=== PATIENT | female | born 1985 ===

== ENCOUNTER 2021-05-13 05:06 | Inpatient (IN) | payer MEDICAID ==
[2021-05-13] MEDS ORDERED: Sodium Chloride 0.9% 10 ML Syringe FLUSH PRN (05:15)
[2021-05-13] MEDS ORDERED: ceFAZolin 2 GM in Premix Bag 1 BAG IV ONE (05:15)
[2021-05-13] MEDS ORDERED: Oxytocin/0.9 % Sodium Chloride 30 UNIT/500 ML BAG IV SCH (05:15)
[2021-05-13] MEDS ORDERED: Sodium Chloride 0.9% 2.5 ML Syringe FLUSH PRN (05:15)
[2021-05-13] MEDS ORDERED: Sodium Chloride 0.9% 20 ML SDV IV PRN (05:15)
[2021-05-13] MEDS ORDERED: Citric Acid/Sodium Citrate Solution 30 ML Cup PO ONE ×2 (05:15→17:30)
[2021-05-13] MEDS: Lactated Ringers 1,000 ML IV SCH ×2 (05:30→06:17)
[2021-05-13] MEDS ORDERED: Oxytocin 10 Units/1 ML SDV ONE (07:42)
[2021-05-13] MEDS ORDERED: Ketorolac 30 MG/ML SDV ONE (07:43)
[2021-05-13] MEDS ORDERED: Phenylephrine 1% 10 MG/ML SDV ONE (07:43)
[2021-05-13] MEDS ORDERED: Ondansetron 4 MG/2 ML SDV ONE (07:43)
[2021-05-13] MEDS ORDERED: Morphine PF 10 MG/10 ML SDV ONE (07:44)
[2021-05-13] MEDS ORDERED: fentaNYL 100 MCG/2 ML SDV ONE (07:44)
[2021-05-13] MEDS ORDERED: Citric Acid/Sodium Citrate Solution 30 ML Cup ONE (07:55)
[2021-05-13] MEDS ORDERED: Famotidine 20 MG/2 ML SDV ONE (08:19)
[2021-05-13] MEDS ORDERED: Oxytocin 10 Units/1 ML SDV IM PRN (09:10)
[2021-05-13] MEDS ORDERED: Ondansetron 4 MG/2 ML SDV IVPUSH PRN ×2 (09:10→09:21)
[2021-05-13] MEDS ORDERED: diphenhydrAMINE 50 MG/ML SDV IVPUSH PRN ×2 (09:10→09:21)
[2021-05-13] MEDS ORDERED: Acetaminophen/HYDROcodone 325-5 MG Tab PO PRN ×3 (09:10→13:44)
[2021-05-13] MEDS ORDERED: Lanolin 100% Cream 7 GM Tube TOP PRN (09:10)
[2021-05-13] MEDS ORDERED: Aluminum Hydroxide/Magnesium Hydroxide/Simethicone XS Susp 30 ML Cup PO PRN (09:10)
[2021-05-13] MEDS ORDERED: Methylergonovine 0.2 MG/1 ML Amp IM PRN (09:10)
[2021-05-13] MEDS ORDERED: Tranexamic Acid 1,000 MG in Sodium Chloride 0.9% 100 ML IV PRN (09:10)
[2021-05-13] MEDS ORDERED: Ibuprofen 800 MG Tab PO PRN (09:10)
[2021-05-13] MEDS ORDERED: Bisacodyl 10 MG Supp RECTAL PRN (09:10)
[2021-05-13] MEDS ORDERED: Lactated Ringers 1,000 ML IV SCH (09:15)
[2021-05-13] MEDS ORDERED: fentaNYL 100 MCG/2 ML SDV IVPUSH PRN (09:21)
[2021-05-13] MEDS ORDERED: Acetaminophen/oxyCODONE 325-5 MG Tab PO PRN (09:21)
[2021-05-13] MEDS: Ketorolac 30 MG/ML SDV IVPUSH SCH ×2 (15:05→20:45)
[2021-05-13] MEDS: Docusate Sodium 100 MG Cap PO SCH (20:46)
[2021-05-14] MEDS: Simethicone 80 MG Tab.Chew PO SCH ×4 (01:19→18:08)
[2021-05-14] MEDS: Ketorolac 30 MG/ML SDV IVPUSH SCH ×2 (03:11→08:57)
[2021-05-14] MEDS: Docusate Sodium 100 MG Cap PO SCH (08:57)
== END 2021-05-14 18:55 | disposition home or self-care (01) | DRG 788 ==
LOC: MW.OB 05:06
PROVIDERS: ADMIT Obstetrics & Gynecology; ATTEND Obstetrics & Gynecology
PROC: 10D00Z1 Extraction of Products of Conception, Low, Open Approach (ICD-10-PCS; principal; 2021-05-13)
DX: O34.211 Maternal care for low transverse scar from previous cesarean delivery (principal); Z3A.39 39 weeks gestation of pregnancy; Z37.0 Single live birth; O77.0 Labor and delivery complicated by meconium in amniotic fluid
CPT/HCPCS: 01961; 36415; 59025; 82803; 85014; 85018; 85027; 86592; 86850; 86900; 86901; A9270-GY; J0690; J1885; J2274; J2370; J2405; J2590; J3010; J3490; J7120